=== PATIENT | female | born 1995 | race Hispanic/Latino ===

== ENCOUNTER 2024-06-02 13:10 | Emergency (ER) | payer OTHER, SELFPAY ==
[2024-06-02] MEDS ORDERED: TDAP (DIPHTH,PERTUSS(ACELL),TET VAC) 0.5 ML VIAL IMVAC ONE (15:01)
[2024-06-02] MEDS ORDERED: AMOX/K CLAV 875 MG TAB ONE (15:01)
--- NOTE | 2024-06-02 15:40 | EDPHYS ---
Physician Documentation [facility] Name: Claire Saez Age: 28 yrs Sex: Female : 1995 Arrival Date: 06/02/2024 Time: 13:10 Bed 10 Private MD: ED Physician Martin Escalera HPI: 06/02 14:18 This 28 yrs old Female presents to ER via Ambulatory with complaints of Dog ec2 Bite. 14:18 Patient arrives today for evaluation after dog bite. Was bitten by her dogs which are ec2 up-to-date on their vaccines on the left foot as well as right hand. No other concerns. Injury happened prior to arrival. Unsure of tetanus status.. Historical: - Allergies: 14:12 No Known Allergies; cm10 - Home Meds: 14:12 None [Active]; cm10 - PMHx: 14:12 None; cm10 - PSHx: 14:12 None; cm10 - Immunization history:: Adult Immunizations up to date. - Infectious Disease History:: Denies. - Social history:: Smoking status: unknown. ROS: 14:18 Constitutional: as per hpi ec2 Exam: 14:18 Constitutional: GEN: NAD Head: atraumatic Eyes: EOMI Ears: External ears are ec2 normal. CV: regular rate LUNGS: no respiratory distress ABD: non-distended SKIN: Multiple lacerations to the left foot, no exposed bone. Proximal right thumb with small skin tear. MSK: no evidence of trauma Vital Signs: 14:13 BP 166 / 100; Pulse 99; Resp 16; Temp 97; Pulse Ox 100% ; Weight 85.28 kg; Height 5 ft. cm10 2 in. ; Pain 5/10; 15:40 BP 155 / 81; Pulse 77; Resp 17; Pulse Ox 99% on R/A; rs5 14:13 Body Mass Index 34.39 (85.28 kg, 157.48 cm) cm10 14:13 Pain Scale: Adult cm10 MDM: 14:12 Medical Screening Exam initiated ec2 14:18 Data reviewed: vital signs, nurses notes. ED course: Patient arrives today after dog ec2 bite. Examination is unrevealing. Will avoid rabies shot RIG given up-to-date on vaccines, will give the patient Augmentin, clean the wounds, will forego laceration repair given injury.. 15:38 ED course: Hand and foot x-ray independently reviewed and interpreted by me, showed no ec2 bony fracture. Will discharge home with Augmentin. Return precautions given.. 06/02 14:18 Order name: Foot Left 3 View XRAY ec2 06/02 14:18 Order name: Hand Right 3 View XRAY ec2 06/02 14:18 Order name: Wound Care; Complete Time: 15:25 ec2 Administered Medications: 15:00 Drug: Boostrix Tdap IM 0.5 ml IM once; as a single dose Route: IM; Site: left deltoid; rs5 15:45 Follow up: Response: No adverse reaction rs5 15:00 Drug: Amoxicillin-Clavulanate PO 875 mg PO once Route: PO; rs5 15:45 Follow up: Response: No adverse reaction rs5 Disposition Summary: 06/02/24 15:39 Discharge Ordered Notes: Location: Home ec2 Condition: Stable ec2 Diagnosis - Bitten by dog, initial encounter ec2 Followup: ec2 - With: Private Physician - When: - Reason: Re-evaluation by your physician Discharge Instructions: - Discharge Summary Sheet ec2 - Animal Bite, Adult, [id number] ec2 Forms: - Medication Reconciliation Form ec2 - Antibiotic Education ec2 - Prescription Opioid Use ec2 - Patient Portal Instructions ec2 - Leadership Thank You Letter ec2 Prescriptions: - Augmentin 875-125 mg Oral Tablet - take 1 tablet ORAL route every 12 hours for 10 days; 20 tablet; Refills: 0, ec2 Product Selection Permitted Signatures: Dispatcher [employer] Pradip Hameed RN RN rs5 Karina Pedersen RN RN cm10 Martin Escalera MD MD ec2 Corrections: (The following items were deleted from the chart) 14:13 14:12 Home Meds: Unable to obtain; cm10 cm10
--- NOTE | 2024-06-02 15:40 | ER ---
Nurse's Notes [facility] Name: Claire Saez Age: 28 yrs Sex: Female : 1995 Arrival Date: 06/02/2024 Time: 13:10 Bed 10 Private MD: Diagnosis: Bitten by dog, initial encounter Presentation: 06/02 14:13 Chief complaint: Patient states: PT'S DOG BIT HER LEFT ANKLE. PT HAS NOTED DOG BITES TO cm10 LEFT ANKLE. Coronavirus screen: Client denies travel out of the [place] in the last 14 days. Ebola Screen: Patient denies travel to an Ebola-affected area in the 21 days before illness onset. Initial Sepsis Screen: Does the patient meet any 2 criteria? No. Patient's initial sepsis screen is negative. Does the patient have a suspected source of infection? No. Patient's initial sepsis screen is negative. Risk Assessment: Do you want to hurt yourself or someone else? Patient reports no desire to harm self or others. Onset of symptoms was June 02, 2024. 14:13 Method Of Arrival: Ambulatory 10 14:13 Acuity: CESAR 4 cm10 Triage Assessment: 14:17 Bite description: bite sustained to left foot by a dog, animal information: Appearance: rs5 appeared well, is superficial, vaccination(s) is not up to date. General: Appears. General: Appears in no apparent distress. uncomfortable, Behavior is calm, cooperative. Historical: - Allergies: 14:12 No Known Allergies; cm10 - Home Meds: 14:12 None [Active]; cm10 - PMHx: 14:12 None; cm10 - PSHx: 14:12 None; cm10 - Immunization history:: Adult Immunizations up to date. - Infectious Disease History:: Denies. - Social history:: Smoking status: unknown. Screenin:15 [facility] ED Fall Risk Assessment (Adult) History of falling in the last 3 months, rs5 including since admission No falls in past 3 months (0 pts) Confusion or Disorientation No (0 pts) Intoxicated or Sedated No (0 pts) Impaired Gait Yes (1 pt) Mobility Assist Device Used No (0 pt) Altered Elimination No (0 pt) Score/Fall Risk Level 0 - 2 = Low Risk Oriented to surroundings, Maintained a safe environment. 14:15 Abuse screen: Denies threats or abuse. Nutritional screening: No deficits noted. rs5 Tuberculosis screening: No symptoms or risk factors identified. Assessment: 14:17 General: Appears in no apparent distress. uncomfortable, Behavior is calm, cooperative. rs5 Pain: Complains of pain in left foot Pain currently is 4 out of 10 on a pain scale. Quality of pain is described as aching, Is continuous. Neuro: Level of Consciousness is awake, alert, obeys commands, Oriented to person, place, time, situation. Cardiovascular: Patient's skin is warm and dry. Respiratory: Airway is patent Respiratory effort is even, unlabored, Respiratory pattern is regular, symmetrical. GI: Abdomen is round non-distended, Abd is soft and non tender X 4 quads. : No signs and/or symptoms were reported regarding the genitourinary system. EENT: No signs and/or symptoms were reported regarding the EENT system. Derm: Skin is intact, Skin is dry, Skin is normal, Skin temperature is warm multiple small wounds noted to left lower foot. 15:45 Reassessment: Patient and/or family updated on plan of care and expected duration. Pain rs5 level reassessed. Patient is alert, oriented x 3, equal unlabored respirations, skin warm/dry/pink. Vital Signs: 14:13 BP 166 / 100; Pulse 99; Resp 16; Temp 97; Pulse Ox 100% ; Weight 85.28 kg; Height 5 ft. cm10 2 in. ; Pain 5/10; 15:40 BP 155 / 81; Pulse 77; Resp 17; Pulse Ox 99% on R/A; rs5 14:13 Body Mass Index 34.39 (85.28 kg, 157.48 cm) cm10 14:13 Pain Scale: Adult cm10 ED Course: 13:14 Patient arrived in ED. ra3 13:17 Martin Escalera MD is Attending Physician. ec2 14:14 Triage completed. cm10 14:14 Arm band placed on right wrist. Patient placed in waiting room. cm10 14:15 [employer] [place] [employer] NOTIFIED OF DOG BITE. STATES THAT PATIENT CAN CALL TO MAKE REPORT cm10 WHEN DISCHARGED. 14:15 Patient has correct armband on for positive identification. Placed in gown. Bed in low rs5 position. Call light in reach. Side rails up X2. 14:15 No provider procedures requiring assistance completed. rs5 14:53 Pradip Almeida, RN is Primary Nurse. rs5 15:26 Foot Left 3 View XRAY In Process Unspecified. EDMS 15:26 Hand Right 3 View XRAY In Process Unspecified. EDMS 15:40 Patient did not have IV access during this emergency room visit. rs5 15:45 Provided Education on: discharge instructions . rs5 Administered Medications: 15:00 Drug: Boostrix Tdap IM 0.5 ml IM once; as a single dose Route: IM; Site: left deltoid; rs5 15:45 Follow up: Response: No adverse reaction rs5 15:00 Drug: Amoxicillin-Clavulanate PO 875 mg PO once Route: PO; rs5 15:45 Follow up: Response: No adverse reaction rs5 Medication: 15:40 VIS not applicable for this client. rs5 Outcome: 15:39 Discharge ordered by . ec2 15:45 Discharged to home via wheelchair, with family, rs5 15:45 Condition: stable rs5 15:45 Discharge instructions given to patient, family, Instructed on discharge instructions, follow up and referral plans. medication usage, Demonstrated understanding of instructions, follow-up care, medications, Prescriptions given X 1, 15:47 Patient left the ED. rs5 Signatures: Dispatcher [employer] Pradip Hameed RN RN rs5 Karina Pedersen RN RN cm10 Martin Escalera MD MD ec2 Leah Bonds ra3 Corrections: (The following items were deleted from the chart) 14:13 14:12 Home Meds: Unable to obtain; 10 10 16:51 15:48 Reassessment: Patient and/or family updated on plan of care and expected rs5 duration. Pain level reassessed. Patient is alert, oriented x 3, equal unlabored respirations, skin warm/dry/pink. rs5 16:51 16:51 BP 155 / 81; Pulse 77bpm; Resp 17bpm; Pulse Ox 99% RA; rs5 rs5
[2024-06-02 15:52] VITALS: BP 166/100; TEMP 97; O2SAT 100
--- NOTE | 2024-06-02 16:03 | RAD REPORT ---
EXAM: XR RIGHT HAND HISTORY: Pain. thumb;Animal bit COMPARISON: None TECHNIQUE: Multiple projections of the right hand submitted. FINDINGS: No evidence of acute fracture or dislocation. Joint alignment is maintained. No soft tissu e swelling is seen.. No significant degenerative changes are present. IMPRESSION: No significant bone or joint abnormality.
--- NOTE | 2024-06-02 16:03 | RAD REPORT ---
EXAMINATION: XR LEFT FOOT CLINICAL INDICATION: ANIMAL BITE TECHNIQUE: Multiple projections of the left foot were obtained. COMPARISON: No prior exam. FINDINGS: No bone or joint abnormality seen. Soft tissue swelling and small amount air present along the dorsum of the foot. No radiopaque foreign body seen.
== END 2024-06-02 15:47 | disposition home or self-care (01) ==
LOC: ER 13:10
DX: S91.312A Laceration without foreign body, left foot, initial encounter (principal); S61.011A Laceration without foreign body of right thumb without damage to nail, initial encounter; W54.0XXA Bitten by dog, initial encounter
CPT/HCPCS: 96372; 99284